=== PATIENT | male | born 1975 | race Caucasian/White ===

== ENCOUNTER → 2018-08-05 16:43 | Outpatient (CLI) | payer OTHER, SELFPAY ==
[2018-08-05 17:46] LABS: Hematocrit 45.1 % (41-53); Hemoglobin 15.3 g/dL (13.5-17.5); INR 0.9 (0.9-1.3); Mean Corpuscular HGB Conc 33.9 % (30-36); Mean Corpuscular Hemoglobin 32.4 PG (26-34); Mean Corpuscular Volume 95.7 fL (80-100); Platelet Count 216 X10^3/uL (150-400); Prothrombin Time 10.8 SECONDS (10.1-12.7); Red Blood Cell Count 4.71 X10^6/uL (4.5-5.9); Red Cell Distribution Width 12.8 % (11.6-14.8); White Blood Cell Count 6.5 X10^3/uL (4.5-11.0)
[2018-08-05 17:52] LABS: Alanine Aminotransferase 52 IU/L (21-72); Albumin 4.4 g/dL (3.5-5.0); Albumin Globulin Ratio 1.5 (1.0-2.8); Alkaline Phosphatase 45 U/L (38-126); Aspartate Aminotransferase 31 IU/L (17-59); Bilirubin Total 0.6 mg/dL (0.2-1.3); Blood Urea Nitrogen 16 mg/dL (9-20); Calcium 9.6 mg/dL (8.4-10.2); Carbon Dioxide 28 mmol/L (22-32); Chloride 101 mmol/L (98-107); Estimated Glomerular Filt Rate > 60.0 mL/min (>60); Globulin 2.9 g/dL (1.7-4.1); Glucose 96 mg/dL (70-100); HEMOLYSIS < 15 (0-50); Lipase 90 U/L (23-300); Potassium 4.4 mmol/L (3.4-5.1); Sodium 142 mmol/L (137-145); Total Protein 7.3 g/dL (6.3-8.2)
[2018-08-05 18:47] LABS: Neutrophils Absolute Manual 3510 /uL (3000-5900); Total Cells Counted 100
[2018-08-05 18:48] LABS: RBC Morphology Normal Morphology
== END ==
PROVIDERS: PCP Family Medicine; Visit Provider Surgery
DX: K80.20 Calculus of gallbladder without cholecystitis without obstruction (principal); C95.90 Leukemia, unspecified not having achieved remission; R10.11 Right upper quadrant pain
CPT/HCPCS: 36415; 80053; 83690; 85025; 85610

== ENCOUNTER → 2018-08-16 09:38 | Outpatient (CLI) | payer OTHER, SELFPAY ==
--- NOTE | 2018-08-16 09:39 | DI.US.S_ITS ---
PROCEDURE: US ABDOMEN COMPLETE INDICATIONS: RIGHT UPPER QUADRANT PAIN TECHNIQUE: Real-time scanning was performed of the abdominal and retroperitoneal organs, with image documentation. COMPARISON: None. FINDINGS: Liver: Liver is normal in size and homogeneous in echotexture, diffusely hyperechoic. The liver is moderately fatty infiltrated as indicated by increased echotexture diffusely. Gallbladder: The gallbladder contains numerous non-mobile stones, the largest measuring up to 4.7 mm but there is no gallbladder wall thickening. Biliary ducts: Intrahepatic bile ducts are non-dilated. Extrahepatic bile duct caliber measures 5.6 mm. Normal is 6-7 mm or less in diameter, or 10 mm or less post-cholecystectomy. Pancreas: Visualized portions of the pancreas are sonographically normal. Spleen: Spleen is normal in size and homogeneous in echotexture. Kidneys: Kidneys are normal in size and echotexture. Right kidney measures 10.7 cm long; left kidney measures 11.0 cm long. No hydronephrosis or nephrolithiasis. No solid masses. Aorta: Visualized aorta is normal in caliber at less than 3 cm. Iliacs: Proximal common iliac arteries are normal in caliber at less than 2.5 cm. IVC: Intrahepatic inferior vena cava is patent. Miscellaneous: No free abdominal fluid. IMPRESSION: Numerous gallstones are seen within the gallbladder lumen, relatively small in size with the largest measuring up to 4.7 mm. The gallbladder wall is not thickened. Acute cholecystitis is not likely present given this appearance. No biliary distention is present. Dictated by: Sheldon Levy M.D. on 08/16/2018 at 13:24 Approved by: Sheldon Levy M.D. on 08/16/2018 at 13:27
== END ==
PROVIDERS: PCP Family Medicine; Visit Provider Surgery
DX: R10.11 Right upper quadrant pain (principal); K80.20 Calculus of gallbladder without cholecystitis without obstruction; K76.0 Fatty (change of) liver, not elsewhere classified
CPT/HCPCS: 76700

== ENCOUNTER 2018-08-27 12:52 | Day surgery (SDC) | payer OTHER, SELFPAY ==
[2018-08-23 14:27] VITALS: BMI 32.5
[2018-08-27] VITALS (11 sets, daily range): BP systolic 131–165; BP diastolic 86–100; PULSE 60–84; RESP 9–17; TEMP 36.3–37; O2SAT 95–99; BMI 32.1
--- NOTE | 2018-08-27 | PATH_ITS ---
[facility] Accession Number: [id number] . 01 Material submitted: . GALLBLADDER . 02 Diagnosis: Gallbladder, Laparoscopic Cholecystectomy: Chronic cholecystitis, cholesterolosis, and cholelithiasis. One benign cystic duct lymph node with lipogranulomas (0/1). MRV/08/29/2018 . 02 Electronically signed: . Trinidad Ibarra MD, Pathologist NPI- [id number] . 01 Gross description: . Received in formalin, labeled gallbladder, is an intact gallbladder (length-7.3 cm, diameter-2.3 cm) with hollingsworth-pink smooth shiny serosa and a patent cystic duct. A possible lymph node (0.8 x 0.5 x 0.4 cm) is identified. The lumen contains brown-green gelatinous bile and multiple brown smooth friable calculi (4.7 x 3.8 x 0.3 cm in aggregate). The mucosa is brown-green smooth and flat. The wall is up to 0.1 cm thick. No nodules, masses or lesions are identified. Section code: (A1) cystic duct resection margin and two serial sections from the body; (A2) two longitudinal section from the fundus; (A3) one bisected lymph node. ([id number]) /MRV . 02 Pathologist provided ICD-10: K80.60 . 02 CPT . 993732 Performed at: 01 [facility] [address] [facility], [place], [place] [id number] MD Joshua Barroso MD Phone: [phone] [facility]formed at: [facility] [address] [place], [place] [id number] MD Yadira Peralta MD Phone: [phone]
--- NOTE | 2018-08-27 13:30 | PM.PREOP ---
Pre-operative Note Interval Note History & Physical reviewed/Exam performed by Physician: Yes Changes to H&P: No H&P completed within 30 days and has changed as indicated here:: Patient seen and examined once again in the preoperative area. His history and physical examination as documented on the chart within the last 30 days has not changed. Proceed with cholecystectomy today as planned.
[2018-08-27] MEDS: LACTATED RINGERS 1,000 ML 42 ML IV ×2 (13:40→14:30)
[2018-08-27] MEDS: CLINDAMYCIN 900 MG/50 ML PIGGYBACK 50 MG IV (13:46)
--- NOTE | 2018-08-27 14:13 | SUR.OPER ---
Supine on padded OR bed, head on pillow, arms secured on padded arm boards at <90 degrees abduction, legs uncrossed, safety belt at thigh, tape over blanket over lower legs.
[2018-08-27] MEDS: LIDOCAINE 1% W/EPI INJ 20 ML INJ (14:23)
[2018-08-27] MEDS: BUPIVACAINE 0.5% (PF) VIAL 30 ML INJ (14:25)
[2018-08-27] MEDS: HYDROMORPHONE 2 MG INJ 0.5 MG IV ×4 (15:30→15:55)
--- NOTE | 2018-08-27 15:53 | P.OP_ITS ---
Operative Date/Time/Diagnoses Date of procedure: 08/27/18 Time of procedure: 15:43 Pre-op diagnosis: Symptomatic cholelithiasis Post-op diagnosis: same Procedure & Clinicians Procedure: Laparoscopic cholecystectomy Same procedure as scheduled: Yes Indications: 43-year-old male status post stem cell transplant/bone marrow transplant approximately 5 years ago who recently presented with intermittent epigastric and right upper quadrant abdominal pain. Examination and evaluation were consistent with symptomatic cholelithiasis. Laparoscopic cholecystectomy was recommended. Surgeon: Yuri Cox Click Yes if Unassisted: Yes Anesthesia Type: General Operative Notes Findings: 1. Chronically inflamed friable gallbladder containing stones and thick bile 2. Boggy character to the tissues throughout the abdominal cavity including omentum, gallbladder, adjacent fat, blood vessels, and liver. Changes most likely consistent with history of chemotherapy, transplant, and prior immunosuppression. 3. Short cystic artery arising from normal anatomic variant of hepatic artery located immediately adjacent to the infundibulum of the gallbladder. There were multiple small branches, however, along the gallbladder wall which were controlled with hemoclips and subsequently divided in order to remove the gallbladder. Closure Type: primary Specimen(s): other (Gallbladder and gallstones) Implants & Drains: See below Applied: drain(s) (10 [place] Aroldo-Morel drain in right upper quadrant at subhepatic space placed to bulb suction) Estimated Blood Loss (mL): 50 Blood products transfused: none Procedure in detail: After obtaining informed consent the patient was brought to the operating room and placed supine on the table. After satisfactory induction of anesthesia the abdomen was prepped and draped in usual sterile fashion. SCOAP time out was performed per standard protocol. A one-to-one mixture 1% lidocaine with 1: 100,000 epinephrine and 0.5% plain Marcaine was injected in the skin and subcutaneous tissue at the superior aspect of the umbilicus for postoperative analgesia. Vertical midline incision was created at the superior aspect of the umbilicus with 11 scalpel blade for distance of approximately 2 cm. Blunt dissection revealed the rectus fascia which was divided in the midline with 11 scalpel blade. Silvia clamps were used to secure the edges of the fascia and elevate them into the operative field. Two individual interrupted 0 Vicryl suture were placed superiorly and inferiorly to secure the fascia. Blunt dissection with a Sariah clamp allowed for entrance into the peritoneal cavity and a blunt 12 mm Thacker trocar was inserted under direct visualization. Carbon dioxide pneumoperitoneum was created and the abdomen was visually explored with 30 degree 5 mm laparoscope. Findings are as above. Under direct laparoscopic visualization a 5 mm trocar was placed in the epigastric midline to the right of the falciform ligament after injecting local anesthesia and incising the skin with 11 scalpel blade. Patient was placed in reverse Trendelenburg position. Two individual 5 mm trocars were placed in a similar fashion in the right lateral abdomen. Fundus of the gallbladder was secured with a ratcheted grasper and retracted superiorly and medially over the liver edge. However, the gallbladder fundus tore slightly with this maneuver given the poor tissue integrity as above. Nevertheless, there was not significant spillage of stones. Infundibulum of the gallbladder was secured with a 2nd Chad grasper and retracted inferiorly and laterally. There were some mildly enlarged lymph nodes attached to the infundibulum at this level which were left with the specimen. Meticulous blunt dissection in the triangle of Calot was performed with a combination of the [place] dissector and Kittner dissectors. Cystic duct was identified and skeletonized the surrounding connective tissue. The junction of the duct with the infundibulum of the gallbladder was clearly identified and the critical view of the liver bed through the avascular window was achieved. Three clips were placed proximally on the duct and 1 at the junction with the gallbladder then the duct was divided with the laparoscopic scissors. In a similar fashion the multiple branches of the cystic artery were controlled and divided as above. Again, this was quite a delicate maneuver since his tissue was so friable and the artery was easily torn. Once hemostasis was verified and the vessels were controlled the gallbladder was removed from the hepatic bed with monopolar cautery. Specimen was placed in an endo-pouch which was retrieved through the umbilical incision. Specimen was sent for permanent section. Liver bed and right upper quadrant were irrigated with copious amounts of sterile saline solution. Irrigant returned clear. Several small stones were retrieved and discarded. No other stones or abnormalities were identified. Liver bed was meticulously examined and noted be hemostatic. No evidence of bile leak as well. Previously placed clips were in good position with no evidence of hemorrhage or bile leak from the cystic duct. Patient was returned to supine position in the right upper quadrant again irrigated. Total of 2 L of fluid were used for irrigation and the irrigant returned clear with suctioning. Aroldo-Morel drain was brought onto the operative field and placed into the abdomen through the epigastric incision then retrieved through the right lateral incision. The drain itself was brought to rest in the subhepatic space in the right upper quadrant at the level of the gallbladder fossa. Drain was secured to the skin with 3 0 nylon suture. Drain was cut to size and placed to bulb suction. Instruments and trocars were removed and hemostasis verified. Carbon dioxide evacuated. Fascia at the umbilical site was secured with the previously placed 0 Vicryl suture. Skin at the remaining 3 incisions was then closed in a subcuticular fashion with running 4 0 Monocryl suture. Dermal adhesive was applied. Sterile dressing was applied around the drain site. Anesthesia was reversed and patient extubated in the operating room. He was taken recovery in stable condition. Complications: none Condition: stable Disposition: PACU Plan for aftercare: 1. Discharge home 2. Follow up in surgery clinic next week for drain removal potentially
[2018-08-27] MEDS: OXYCODONE/ACETAMINOPHEN 5/325 TABLET 1 TAB PO ×2 (16:02→16:24)
--- NOTE | 2018-08-27 16:12 | SUR.PHASEI ---
Pt awoke c/o pain medicated with demerol then eventually [percocet after apple sauce tolerated.
--- NOTE | 2018-08-27 16:49 | SUR.PHASEII ---
D/C instructions discussed with and pt, and shown how to empty DARIA drain and change dressing. both voiced an understanding. Dr Cox's office called to verify when pt needs to come back for drain removal. Awaiting call back.
--- NOTE | 2018-08-27 17:02 | SUR.PHASEII ---
Pt assisted to BR to void, dressed with assist od , all surgical sites remain c/d/i. DARIA pinned to shirt, awaiting call from dr rbaxton.
--- NOTE | 2018-08-27 17:15 | SUR.PHASEII ---
Pt left when ready and left in stable condition.
== END 2018-08-27 17:17 | disposition home or self-care (01) ==
PROVIDERS: PCP Family Medicine; Visit Provider Surgery
PROC: 0FT44ZZ Resection of Gallbladder, Percutaneous Endoscopic Approach (ICD-10-PCS; CPT 47562; principal; 2018-08-27 13:45)
DX: K80.10 Calculus of gallbladder with chronic cholecystitis without obstruction (principal)
CPT/HCPCS: 47562; J1100; J1170; J2250; J2405; J2704; J3010